=== PATIENT | female | born 1965 | race Caucasian/White ===

== ENCOUNTER 2022-05-29 12:56 | Emergency (ER) | payer OTHER ==
[~2022-05-29] VITALS: Ht 154.9 cm; Wt 54.4 kg
== END 2022-05-29 14:07 | disposition home or self-care (01) ==
LOC: ER 12:56
DX: H10.11 Acute atopic conjunctivitis, right eye (principal)

== ENCOUNTER → 2022-06-04 | Emergency (ER) | payer OTHER ==
[~2022-06-04] VITALS: Ht 157.5 cm; Wt 54.4 kg
== END | disposition home or self-care (01) ==
LOC: ER 08:37
DX: H10.13 Acute atopic conjunctivitis, bilateral (principal)